=== PATIENT | male | born 1980 | race Caucasian/White ===

== ENCOUNTER 2017-05-27 08:31 | Emergency (ER) | payer OTHER | END 2017-05-27 09:56 | disposition home or self-care (01) | LOC: FTE 08:31 | DX: R07.9 Chest pain, unspecified (principal) | CPT/HCPCS: 71045; 93005; 99284-25 ==

== ENCOUNTER 2017-07-15 20:12 | Emergency (ER) | payer OTHER | END 2017-07-15 23:50 | disposition home or self-care (01) | LOC: FTE 23:50 | DX: H05.019 Cellulitis of unspecified orbit (principal); H10.9 Unspecified conjunctivitis; Z76.0 Encounter for issue of repeat prescription | CPT/HCPCS: 99283; Z7502 ==

== ENCOUNTER 2018-02-26 23:18 | Emergency (ER) | payer OTHER ==
[2018-02-27 01:19] LABS: ADD MAN DIFF? NO
[2018-02-27 01:21] LABS: WHITE BLOOD COUNT 8.6 10^3/ul (4.8-10.8)
[2018-02-27 01:21] LABS: BASOPHIL # 0.1 10^3/ul (0.0-0.1); BASOPHILS % 0.6 % (0.0-2.0); EOSINOPHILS # 0.5 10^3/ul (0.0-0.5); EOSINOPHILS % 6.2 % (0.0-7.0); HEMATOCRIT 45.8 % (42.0-52.0); HEMOGLOBIN 15.3 g/dl (14.0-18.0); LYMPHOCYTES # 2.4 10^3/ul (0.8-2.9); LYMPHOCYTES % 27.5 % (15.0-51.0); MEAN CORPUSCULAR HEMOGLOBIN 27.6 pg (29.0-33.0); MEAN CORPUSCULAR HGB CONC 33.4 g/dl (32.0-37.0); MEAN CORPUSCULAR VOLUME 82.7 fl (82.0-101.0); MEAN PLATELET VOLUME 10.9 fl (7.4-10.4); MONOCYTE # 1.1 10^3/ul (0.3-0.9); MONOCYTES % 13.1 % (0.0-11.0); NEUTROPHIL # 4.5 10^3/ul (1.6-7.5); NEUTROPHILS % 52.2 % (39.0-77.0); PLATELET COUNT 168 10^3/UL (140-415); RED BLOOD COUNT 5.54 10^6/ul (4.70-6.10); RED CELL DISTRIBUTION WIDTH 12.6 % (11.5-14.5)
[2018-02-27] MEDS: LIDOCAINE/MYLANTA 40 ML BTL PO (01:21)
[2018-02-27] MEDS: FAMOTIDINE 20 MG INJ IV (01:21)
[2018-02-27] MEDS: KETOROLAC 15 MG INJ IV (01:21)
[2018-02-27] MEDS: ONDANSETRON 4 MG INJ IV (01:21)
[2018-02-27] MEDS: SOD CHLORIDE 0.9% 1,000 ML IV (01:21)
[2018-02-27 01:39] LABS: ALANINE AMINOTRANSFERASE 52 IU/L (13-69); ALBUMIN 4.1 g/dl (3.3-4.9); ALKALINE PHOSPHATASE 96 IU/L (42-121); ANION GAP 10 (5-13); ASPARTATE AMINO TRANSFERASE 31 IU/L (15-46); BILIRUBIN,INDIRECT 0.2 mg/dl (0-1.1); BILIRUBIN,TOTAL 0.2 mg/dl (0.2-1.3); BLOOD UREA NITROGEN 15 mg/dl (7-20); CALCIUM 8.8 mg/dl (8.4-10.2); CARBON DIOXIDE 25 mmol/L (21-31); CHLORIDE 103 mmol/L (97-110); CREATININE 0.67 mg/dl (0.61-1.24); Estimated GFR > 60 mL/min (>60); GLUCOSE 165 mg/dl (70-220); LIPASE 114 U/L (23-300); POTASSIUM 3.7 mmol/L (3.5-5.1); SODIUM 138 mmol/L (135-144); TOTAL PROTEIN 7.5 g/dl (6.1-8.1)
== END 2018-02-27 02:45 | disposition home or self-care (01) ==
LOC: E/R 23:18
DX: S13.4XXA Sprain of ligaments of cervical spine, initial encounter (principal); S39.91XA Unspecified injury of abdomen, initial encounter; R11.2 Nausea with vomiting, unspecified; R19.7 Diarrhea, unspecified; V89.2XXA Person injured in unspecified motor-vehicle accident, traffic, initial encounter; Z87.891 Personal history of nicotine dependence
CPT/HCPCS: 36415; 80053; 83690; 85025; 96374; 96375; 99284-25

== ENCOUNTER 2018-07-15 19:09 | Emergency (ER) | payer OTHER | END 2018-07-15 21:12 | disposition home or self-care (01) | LOC: FTE 19:09 | DX: H10.13 Acute atopic conjunctivitis, bilateral (principal) | CPT/HCPCS: 99283; Z7502 ==

== ENCOUNTER 2018-10-26 22:16 | Emergency (ER) | payer OTHER ==
[2018-10-26] MEDS: IBUPROFEN 800 MG TAB PO (23:00)
[2018-10-26] MEDS: FAMOTIDINE 20 MG TAB PO (23:00)
[2018-10-26] MEDS: LIDOCAINE/MYLANTA 40 ML BTL PO (23:00)
[2018-10-26] MEDS: BELLADONNA/PHENOBARBITAL TAB PO (23:00)
[2018-10-26] MEDS: ACETAMINOPHEN 500 MG TAB PO (23:47)
== END 2018-10-27 00:30 | disposition home or self-care (01) ==
LOC: E/R 22:16
DX: B34.9 Viral infection, unspecified (principal); R10.13 Epigastric pain
CPT/HCPCS: 99283; Z7502